=== PATIENT | female | born 1955 | race Caucasian/White ===

== ENCOUNTER 2022-01-23 00:13 | Inpatient (IN) | payer MEDICARE ==
[2022-01-23 03:11] VITALS: BMI 23.8
[2022-01-23] MEDS ORDERED: Zolpidem Tartrate 5 MG TAB PO PRN (03:30)
[2022-01-23] MEDS ORDERED: Nitroglycerin 0.4 MG TAB (25 Tab Bottle) SL PRN (03:30)
[2022-01-23] MEDS ORDERED: hydrALAZINE 20 MG/ML VIAL SLOW IVP PRN (03:33)
[2022-01-23] MEDS: Potassium Chloride 20 MEQ in Lactated Ringer's 1,000 ML IV SCH ×2 (04:07→19:20)
[2022-01-23 05:30] LABS: ALT (SGPT) 15 U/L (8-55); AST (SGOT) 20 U/L (5-34); Albumin 3.7 g/dL (3.4-4.8); Alkaline Phosphatase 83 U/L (40-110); Anion Gap 13 mmol/L (10-20); BUN (Urea Nitrogen) 22 mg/dL (9.8-20.1); Band 51 % (5-11); Bilirubin, Total 0.3 mg/dL (0.2-1.2); Calc. Creatinine Clearance 52 mL/min (70-130); Calcium 9.1 mg/dL (7.8-10.44); Carbon Dioxide 28 mmol/L (23-31); Chloride 99 mmol/L (98-107); Cholesterol 175 mg/dl (< 200 Desired); Globulin 3.4 g/dL (2.4-3.5); Glucose 107 mg/dL (80-115); HDL Cholesterol 58 mg/dL (>60 Neg Risk); Hemoglobin 13.9 g/dL (12.0-16.0); LDL Cholesterol, Calculated 93 mg/dL; Lymphocytes 6 % (21-51); MDiff Complete? YES; Magnesium 2.2 mg/dL (1.6-2.6); Mean Corpuscular HGB CONC 32.2 g/dL (32.0-36.0); Mean Corpuscular Hemoglobin 32.2 pg (27.0-31.0); Mean Corpuscular Volume 99.9 fL (78.0-98.0); Mean Platelet Volume 7.4 fL (7.4-10.4); Metamyelocyte 3 % (0-0); Monocytes 9 % (0-10); Neutrophil 31 % (42-75); Platelet Count 271 thou/uL (130-400); Platelet Morphology Comment Appears Adequate; Protein, Total 7.1 g/dL (5.8-8.1); RBC Distribution Width 12.3 % (11.5-14.5); RBC Morphology Normal; Red Blood Cell (RBC) Count 4.32 mill/uL (4.20-5.40); Reflex for Review?? YES; Sodium 137 mmol/L (136-145); Triglycerides 119 mg/dL (Less than 150); White Blood Cell (WBC) Count 4.3 thou/uL (4.8-10.8)
[2022-01-23 05:32] LABS: Troponin I Less than 0.010 ng/mL (< 0.028)
[2022-01-23 05:45] LABS: SARS-CoV-2 NAA Rapid Test Not Detected (NotDetected)
[2022-01-23 07:07] LABS: Troponin I Less than 0.010 ng/mL (< 0.028)
[2022-01-23] MEDS: Metoprolol Tartrate 25 MG TAB PO SCH ×2 (08:59→21:06)
[2022-01-23] MEDS ORDERED: Loratadine 10 MG TAB PO PRN (08:59)
[2022-01-23] MEDS ORDERED: Cepastat Lozenges 1 LOZ PO PRN (08:59)
[2022-01-23] MEDS ORDERED: Calcium Carbonate 500 MG ChewTAB PO PRN (08:59)
[2022-01-23] MEDS ORDERED: Sodium Chloride 0.65% Nasal 44 ML BOT EA NARE PRN (08:59)
[2022-01-23] MEDS: Aspirin Chewable 81 MG TAB PO SCH (08:59)
[2022-01-23] MEDS ORDERED: GUAIFENESIN SF SOLN 200 MG/10 ML UDCUP PO PRN (08:59)
[2022-01-23] MEDS ORDERED: Loperamide HCl 2 MG CAP PO PRN (08:59)
[2022-01-23] MEDS: Enoxaparin Sodium 40 MG/0.4 ML SYRINGE SC SCH (09:00)
[2022-01-23] MEDS ORDERED: Famotidine 20 MG TAB PO SCH (09:00)
[2022-01-23] MEDS: Nicotine 21 MG PATCH TD SCH (09:01)
[2022-01-23] MEDS: Famotidine/PF 20 mg/2ml Vial SLOW IVP SCH ×2 (09:28→21:07)
[2022-01-23] MEDS ORDERED: Potassium Chloride 10 MEQ/100 ML PREMIX BAG IVPB SCH (10:00)
[2022-01-23] MEDS: metroNIDAZOLE 500 MG in Premix Bag 1 BAG IVPB SCH ×2 (14:28→21:07)
[2022-01-23] MEDS ORDERED: Lidocaine 2% Viscous Solution 10 ML, Aluminum & Magnesium Hydroxide 30 ML SSW SCH (18:00)
[2022-01-23] MEDS: Ondansetron PF 4 MG/2 ML Vial IVP PRN (18:09)
[2022-01-24] MEDS: Potassium Chloride 20 MEQ in Lactated Ringer's 1,000 ML IV SCH ×2 (00:46→14:09)
[2022-01-24] MEDS: Morphine 2 MG/ML VIAL SLOW IVP PRN ×2 (00:47→17:33)
[2022-01-24] MEDS: metroNIDAZOLE 500 MG in Premix Bag 1 BAG IVPB SCH ×3 (04:18→21:07)
[2022-01-24 05:10] LABS: ALT (SGPT) 11 U/L (8-55); AST (SGOT) 20 U/L (5-34); Alkaline Phosphatase 65 U/L (40-110); Anion Gap 11 mmol/L (10-20); BUN (Urea Nitrogen) 12 mg/dL (9.8-20.1); Bilirubin, Total 0.4 mg/dL (0.2-1.2); Calc. Creatinine Clearance 74 mL/min (70-130); Calcium 8.4 mg/dL (7.8-10.44); Carbon Dioxide 27 mmol/L (23-31); Chloride 98 mmol/L (98-107); Globulin 2.7 g/dL (2.4-3.5); Glucose 74 mg/dL (80-115); Magnesium 1.9 mg/dL (1.6-2.6); Phosphorus 2.3 mg/dL (2.3-4.7); Protein, Total 5.7 g/dL (5.8-8.1); Sodium 133 mmol/L (136-145)
[2022-01-24 05:19] LABS: Potassium 2.9 mmol/L (3.5-5.1)
[2022-01-24 05:28] LABS: Band 47 % (5-11); Hemoglobin 12.3 g/dL (12.0-16.0); Lymphocytes 5 % (21-51); MDiff Complete? YES; Mean Corpuscular HGB CONC 33.8 g/dL (32.0-36.0); Mean Corpuscular Volume 97.5 fL (78.0-98.0); Mean Platelet Volume 7.1 fL (7.4-10.4); Monocytes 13 % (0-10); Neutrophil 34 % (42-75); Platelet Count 235 thou/uL (130-400); Platelet Morphology Comment Appears Adequate; RBC Distribution Width 11.9 % (11.5-14.5); RBC Morphology Normal; Red Blood Cell (RBC) Count 3.72 mill/uL (4.20-5.40); White Blood Cell (WBC) Count 4.7 thou/uL (4.8-10.8)
[2022-01-24] MEDS ORDERED: Potassium Chloride 10 MEQ in Premix Bag 1 BAG IVPB SCH (05:45)
[2022-01-24] MEDS ORDERED: EPINEPHrine 1 MG/ML AMP ONE (09:27)
[2022-01-24] MEDS ORDERED: Bupivacaine 0.25% HCL 30 ML VIAL ONE (09:27)
[2022-01-24] MEDS ORDERED: fentaNYL Citrate/PF 100 MCG/2 ML SYRINGE ONE (09:28)
[2022-01-24] MEDS ORDERED: Ondansetron PF 4 MG/2 ML Vial ONE (10:04)
[2022-01-24] MEDS ORDERED: Lidocaine 1% PF 5 ML VIAL ONE (10:04)
[2022-01-24] MEDS ORDERED: PROPOFOL 200 MG/20 ML VIAL ONE (10:04)
[2022-01-24] MEDS ORDERED: Glycopyrrolate 0.2 MG/ML 5 ML SYRINGE ONE (10:04)
[2022-01-24] MEDS ORDERED: Rocuronium Bromide 10 MG/ML (10ML VIAL) ONE (10:04)
[2022-01-24] MEDS ORDERED: Albuterol Sulfate 2.5 mg/3 ml Neb ONE ×2 (11:21→11:22)
[2022-01-24] MEDS ORDERED: traMADol HCl 50 MG TAB PO PRN ×2 (11:49)
[2022-01-24] MEDS: Nicotine 21 MG PATCH TD SCH (12:38)
[2022-01-24] MEDS: Enoxaparin Sodium 40 MG/0.4 ML SYRINGE SC SCH (12:39)
[2022-01-24] MEDS: Aspirin Chewable 81 MG TAB PO SCH (12:39)
[2022-01-24] MEDS: Metoprolol Tartrate 25 MG TAB PO SCH ×2 (12:39→21:10)
[2022-01-24] MEDS ORDERED: Potassium Chloride 20 MEQ in Premix Bag 1 BAG IVPB SCH (12:45)
[2022-01-24 13:11] LABS: Anion Gap 10 mmol/L (10-20); BUN (Urea Nitrogen) 11 mg/dL (9.8-20.1); Calc. Creatinine Clearance 64 mL/min (70-130); Calcium 8.8 mg/dL (7.8-10.44); Carbon Dioxide 29 mmol/L (23-31); Chloride 97 mmol/L (98-107); Glucose 101 mg/dL (80-115); Sodium 133 mmol/L (136-145)
[2022-01-24 13:19] LABS: Potassium 2.9 mmol/L (3.5-5.1)
[2022-01-24] MEDS: Famotidine/PF 20 mg/2ml Vial SLOW IVP SCH ×2 (14:16→21:35)
[2022-01-24] MEDS: Potassium Chloride 20 MEQ in Premix Bag 1 BAG IVPB SCH ×2 (14:24→20:05)
[2022-01-24] MEDS: Ondansetron PF 4 MG/2 ML Vial IVP PRN ×2 (17:27→22:28)
[2022-01-24] MEDS: Famotidine 20 MG TAB PO SCH (22:26)
[2022-01-25] MEDS: Potassium Chloride 20 MEQ in Lactated Ringer's 1,000 ML IV SCH (03:48)
[2022-01-25] MEDS: metroNIDAZOLE 500 MG in Premix Bag 1 BAG IVPB SCH ×2 (03:51→13:20)
[2022-01-25 04:55] LABS: #Lymphocytes 1.1 thou/uL (1.20-3.40); #Monocytes 0.8 thou/uL (0.11-0.59); #Neutrophils 3.5 thou/uL (1.40-6.50); %Basophils 0.4 % (0.0-1.0); %Eosinophils 0.5 % (0.0-10.0); %Lymphocytes 19.7 % (21.0-51.0); %Monocytes 14.5 % (0.0-10.0); %Neutrophils 64.9 % (42.0-75.0); Hemoglobin 12.1 g/dL (12.0-16.0); Mean Corpuscular HGB CONC 32.6 g/dL (32.0-36.0); Mean Corpuscular Hemoglobin 32.3 pg (27.0-31.0); Mean Corpuscular Volume 99.1 fL (78.0-98.0); Mean Platelet Volume 6.9 fL (7.4-10.4); Platelet Count 268 thou/uL (130-400); Red Blood Cell (RBC) Count 3.74 mill/uL (4.20-5.40); White Blood Cell (WBC) Count 5.3 thou/uL (4.8-10.8)
[2022-01-25 05:14] LABS: Anion Gap 10 mmol/L (10-20); BUN (Urea Nitrogen) 8 mg/dL (9.8-20.1); Calc. Creatinine Clearance 72 mL/min (70-130); Calcium 8.6 mg/dL (7.8-10.44); Carbon Dioxide 26 mmol/L (23-31); Chloride 103 mmol/L (98-107); Glucose 92 mg/dL (80-115); Potassium 3.3 mmol/L (3.5-5.1); Sodium 136 mmol/L (136-145)
[2022-01-25] MEDS ORDERED: Potassium Chloride 20 MEQ TAB PO SCH (08:00)
[2022-01-25] MEDS: Metoprolol Tartrate 25 MG TAB PO SCH (08:58)
[2022-01-25] MEDS: Famotidine 20 MG TAB PO SCH (08:58)
[2022-01-25] MEDS: Aspirin Chewable 81 MG TAB PO SCH (08:58)
[2022-01-25] MEDS: Nicotine 21 MG PATCH TD SCH (09:00)
[2022-01-25] MEDS: Enoxaparin Sodium 40 MG/0.4 ML SYRINGE SC SCH (09:00)
[2022-01-25 11:59] VITALS: BP 124/68; TEMP 97.5
== END 2022-01-25 13:21 | disposition home or self-care (01) | DRG 854 ==
LOC: 2SW 00:13 → OBSVTOIN 01-24 07:29
PROVIDERS: ADMIT Internal Medicine; ATTEND Internal Medicine
PROC: 0FT44ZZ Resection of Gallbladder, Percutaneous Endoscopic Approach (ICD-10-PCS; principal; 2022-01-24)
DX: A41.9 Sepsis, unspecified organism (principal); K80.00 Calculus of gallbladder with acute cholecystitis without obstruction; N17.9 Acute kidney failure, unspecified; Z20.822 Contact with and (suspected) exposure to COVID-19; F41.9 Anxiety disorder, unspecified; F32.A Depression, unspecified; K21.9 Gastro-esophageal reflux disease without esophagitis; E87.6 Hypokalemia; F17.210 Nicotine dependence, cigarettes, uncomplicated; E86.0 Dehydration; K52.9 Noninfective gastroenteritis and colitis, unspecified; Z98.51 Tubal ligation status; Z90.710 Acquired absence of both cervix and uterus; Z88.1 Allergy status to other antibiotic agents; Z88.5 Allergy status to narcotic agent; Z88.8 Allergy status to other drugs, medicaments and biological substances; Z79.899 Other long term (current) drug therapy
CPT/HCPCS: 36415; 74177; 76705; 80048; 80053; 80061; 83735; 84100; 84145; 84443; 84484; 85025; 85060; 86140; 87081; 87324; 87328; 87329; 87449; 88304; 94760; 96372; 96374; 96375; 96376; C1713; G0378; J0171; J0744; J1650; J2270; J2405; J2704; J3480; J7120; J7611; J7620; S0020; S0028; U0002